=== PATIENT | male | born 2000 | race African-American/Black ===

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

== ENCOUNTER 2019-01-07 23:46 | Emergency (ER) | payer MEDICAID, OTHER ==
[~2019-01-07] VITALS: Ht 170.2 cm; Wt 113.0 kg
[~2019-01-07 23:46] MED LIST: METF100P3 MC; QUET25TA PO; TRAZ-212 PO
[2019-01-07 23:49] VITALS: BP 130/74
== END 2019-01-08 02:33 | disposition left against medical advice (07) ==
LOC: ER 23:46
DX: F98.9 Unspecified behavioral and emotional disorders with onset usually occurring in childhood and adolescence (principal); Z53.21 Procedure and treatment not carried out due to patient leaving prior to being seen by health care provider